=== PATIENT | male | born 1965 | race Caucasian/White ===

== ENCOUNTER → 2019-01-10 | Day surgery (SDC) | payer OTHER ==
[~2019-01-10] VITALS: Ht 185.4 cm; Wt 103.9 kg
[~2019-01-10] MED LIST: B12100 MCG PO; BLEPH-10 15 ML15 ML OPH; CALCIUM200 MG PO; CELEXA20 MG PO; DELTASONE10 MG PO; LEXAPRO10 MG PO; LISINOPRIL20 MG; MEDROL DOSEPAK4 MG PO; MULTIPLE VITAMI1 CAP PO; NORCO 5-325 TA1 EACH PO; PREDNISLONE SOD15 ML; PROTONIX40 M1 PO; ROBAXIN750 MG PO; VICO10300 PO; VICODIN 5/500 505 MG PO; VICODIN ES 7501 TA1 PO; VICODIN ES 7501 TAB PO; VITAMIN E200 UNI1 PO; XANAX0.25 MG PO; ZESTRIL2.5 MG PO
--- NOTE | ~2019-01-10 | PROC NOTE ---
[place], [place] PROCEDURE NOTE NAME: TOBIN MILLER UNIT #: [id number] ROOM: DOCTOR: RAFIQ ALMONTE MD BIRTHDATE: [birth year] DOS: 01/10/2019 PREOPERATIVE DIAGNOSIS: Left index finger cyst. POSTOPERATIVE DIAGNOSIS: Left index finger cyst. PROCEDURE: Excision of left index finger cyst. SURGEON: Rafiq Almonte MD INJECTION MOLDING SUPERVISOR: PATRICIA. ANESTHESIA: MAC with local. INDICATIONS: This is a 53-year-old gentleman with a longstanding history of a cyst on the dorsal aspect of his left index finger, at the level of the proximal interphalangeal joint, who is here for the above-mentioned procedure. The procedure and its complications were explained to the patient in detail. Complications that were discussed included but were not limited to bleeding, infection, hematoma/seroma/abscess formation, prolonged postoperative pain, and damage to lying vital structures. He agreed to proceed. DESCRIPTION OF PROCEDURE: After identifying the patient, the patient was brought to the operating suite and laid in the supine position. After time-out procedure was called, IV sedation was administered by the anesthesia team and the parts were then painted and draped in the usual sterile fashion. A lazy-S incision was marked with the help of a marking pen over the lesion and local anesthesia was infiltrated. Skin incision was made and deepened in layers. The cyst was identified right under the skin and it was excised with the help of blunt dissection all around and sent for histopathological diagnosis. Hemostasis was achieved and the subcutaneous tissue was irrigated and approximated with the help of a single 3-0 Vicryl suture and the skin was approximated with the help of a single 2-0 nylon suture in an interrupted fashion. A dressing was placed. The patient tolerated the procedure well and was brought back to the recovery room in stable fashion. There were no complications. Dr. Rafiq Almonte, the attending surgeon, was present throughout the operating case. [place], [place] PROCEDURE NOTE NAME: TOBIN MILLER UNIT #: [id number] ROOM: DOCTOR: RAFIQ ALMONTE MD BIRTHDATE: [birth year] Rafiq Almonte MD CM:PROCNOTE:PROCEDURE NOTE [id number] RAFIQ ALMONTE MD
[2019-01-10 08:58] VITALS: BP 117/74
[2019-01-10 10:56] VITALS: BP 132/82
[2019-01-10 11:10] VITALS: BP 115/83
[2019-01-10 11:34] VITALS: BP 123/89
== END | disposition home or self-care (01) ==
LOC: SDC 01-07 14:00
DX: R22.32 Localized swelling, mass and lump, left upper limb (principal); L72.0 Epidermal cyst; M25.842 Other specified joint disorders, left hand; K21.9 Gastro-esophageal reflux disease without esophagitis; F32.9 Major depressive disorder, single episode, unspecified; F41.9 Anxiety disorder, unspecified; E78.5 Hyperlipidemia, unspecified; I10 Essential (primary) hypertension; F17.200 Nicotine dependence, unspecified, uncomplicated; Z98.890 Other specified postprocedural states; Z98.1 Arthrodesis status; Z91.040 Latex allergy status

== ENCOUNTER → 2021-06-06 | Outpatient (CLI) | payer OTHER ==
[2021-06-06 11:43] LABS: HEMATOCRIT 46.3 % (42.0-52.0); MEAN CELL VOLUME 89.6 fl (80.0-94.0); MEAN CORPUSCULAR HGB 30.8 pg (27.0-31.0); MEAN CORPUSCULAR HGB CONC 34.3 g/dl (33.0-37.0); MEAN PLATELET VOLUME 9.5 fl (9.6-12.3); RED BLOOD COUNT 5.17 10*6/uL (4.50-5.90); RED CELL DISTRI WIDTH 12.8 % (0-14.5); WHITE BLOOD COUNT 5.8 10*3/uL (4.8-10.8)
[2021-06-06 12:04] LABS: ALKALINE PHOSPHATASE 70 U/L (45-117); BUN 10 mg/dl (7-24); CHLORIDE 109 mmol/L (98-107); CHOLESTEROL 221 mg/dL (<200); CREATININE 1.29 mg/dL (0.70-1.30); LDL CHOLESTEROL 147 mg/dL (9-159); POTASSIUM 4.1 mmol/L (3.5-5.1); SGOT/AST 39 IU/L (3-35); SGPT/ALT 72 U/L (12-78); SODIUM 142 mmol/L (136-145); TOTAL PROTEIN 7.5 gm/dL (6.4-8.2); TRIGLYCERIDES 138 mg/dl (<150)
== END | disposition home or self-care (01) ==
LOC: LAB 11:19
PROVIDERS: ATTEND Family Medicine
DX: K21.9 Gastro-esophageal reflux disease without esophagitis (principal); L20.9 Atopic dermatitis, unspecified; R07.89 Other chest pain

== ENCOUNTER → 2021-06-24 | Outpatient (CLI) | payer OTHER ==
[2021-06-24 15:16] LABS: TOTAL PROTEIN 7.7 gm/dL (6.4-8.2)
== END | disposition home or self-care (01) ==
LOC: LAB 14:12
PROVIDERS: ATTEND Nurse Practitioner Family
DX: L20.9 Atopic dermatitis, unspecified (principal); L71.9 Rosacea, unspecified

== ENCOUNTER → 2022-08-09 | Outpatient (CLI) | payer BC ==
[2022-08-09 17:33] LABS: HEMATOCRIT 47.4 % (42.0-52.0); MEAN CELL VOLUME 89.1 fl (80.0-94.0); MEAN CORPUSCULAR HGB 30.3 pg (27.0-31.0); RED BLOOD COUNT 5.32 10*6/uL (4.50-5.90); RED CELL DISTRI WIDTH 12.3 % (0-14.5)
[2022-08-09 17:59] LABS: ALKALINE PHOSPHATASE 63 U/L (46-116); BUN 10 mg/dl (9-23); CHLORIDE 106 mmol/L (98-107); CHOLESTEROL 197 mg/dL (<200); GAMMA GLUTAMYL TRANSPEPTIDASE 31 U/L (0-73); LDL CHOLESTEROL 134 mg/dL (9-159); POTASSIUM 4.2 mmol/L (3.4-5.1); SGPT/ALT 45 U/L (10-49); TOTAL PROTEIN 7.3 gm/dL (6.0-8.0); TRIGLYCERIDES 117 mg/dl (<150)
== END | disposition home or self-care (01) ==
LOC: LAB 11:56
PROVIDERS: ATTEND Family Medicine
DX: Z00.00 Encounter for general adult medical examination without abnormal findings (principal); Z13.220 Encounter for screening for lipoid disorders; Z12.5 Encounter for screening for malignant neoplasm of prostate; R53.83 Other fatigue; E55.9 Vitamin D deficiency, unspecified; R74.8 Abnormal levels of other serum enzymes

== ENCOUNTER → 2022-08-25 | Outpatient (CLI) | payer BC | END | disposition home or self-care (01) | LOC: US 02:22 | PROVIDERS: ATTEND Family Medicine | DX: K76.0 Fatty (change of) liver, not elsewhere classified (principal) ==

== ENCOUNTER → 2022-09-19 | Outpatient (CLI) | payer BC | END | disposition home or self-care (01) | LOC: NM 01:45 | PROVIDERS: ATTEND Family Medicine | DX: R10.11 Right upper quadrant pain (principal); K21.9 Gastro-esophageal reflux disease without esophagitis ==

== ENCOUNTER → 2022-11-23 | Outpatient (CLI) | payer BC | END | disposition home or self-care (01) | LOC: RAD 17:53 | PROVIDERS: ATTEND Family Medicine | DX: M47.812 Spondylosis without myelopathy or radiculopathy, cervical region (principal); M43.22 Fusion of spine, cervical region; M48.02 Spinal stenosis, cervical region ==

== ENCOUNTER → 2022-12-07 | Outpatient (CLI) | payer BC | END | disposition home or self-care (01) | LOC: MRI 13:44 | PROVIDERS: ATTEND Family Medicine | DX: R51.9 Headache, unspecified (principal); M62.422 Contracture of muscle, left upper arm; R20.2 Paresthesia of skin; R42 Dizziness and giddiness; H81.4 Vertigo of central origin ==

== ENCOUNTER → 2023-06-30 | Outpatient (CLI) | payer OTHER ==
[2023-06-30 10:41] LABS: MEAN CELL VOLUME 92.5 fl (80.0-94.0); MEAN CORPUSCULAR HGB 30.7 pg (27.0-31.0); MEAN CORPUSCULAR HGB CONC 33.2 g/dl (33.0-37.0); MEAN PLATELET VOLUME 10.1 fl (9.6-12.3); RED BLOOD COUNT 5.08 10*6/uL (4.50-5.90); RED CELL DISTRI WIDTH 13.2 % (0-14.5); WHITE BLOOD COUNT 4.7 10*3/uL (4.8-10.8)
[2023-06-30 11:10] LABS: ALKALINE PHOSPHATASE 78 U/L (46-116); BUN 11 mg/dl (9-23); CHLORIDE 107 mmol/L (98-107); CHOLESTEROL 191 mg/dL (<200); CPK 429 U/L (34-171); LDL CHOLESTEROL 134 mg/dL (9-159); POTASSIUM 4.5 mmol/L (3.4-5.1); SGPT/ALT 61 U/L (5-49); TOTAL PROTEIN 7.3 gm/dL (6.0-8.0); TRIGLYCERIDES 90 mg/dl (<150)
[2023-06-30 11:13] LABS: VITAMIN D, 25-HYDROXY 51.1 ng/mL (30-100)
== END | disposition home or self-care (01) ==
LOC: LAB 10:02
PROVIDERS: ATTEND Family Medicine
DX: Z12.5 Encounter for screening for malignant neoplasm of prostate (principal); R06.02 Shortness of breath; E55.9 Vitamin D deficiency, unspecified; M79.10 Myalgia, unspecified site; G62.9 Polyneuropathy, unspecified; E78.00 Pure hypercholesterolemia, unspecified; K21.9 Gastro-esophageal reflux disease without esophagitis; M25.50 Pain in unspecified joint

== ENCOUNTER → 2023-07-25 | Outpatient (CLI) | payer OTHER | END | disposition home or self-care (01) | LOC: LAB 07:10 | PROVIDERS: ATTEND Family Medicine | DX: R74.8 Abnormal levels of other serum enzymes (principal) ==

== ENCOUNTER → 2023-11-17 | Outpatient (CLI) | payer OTHER ==
[2023-11-17 16:23] LABS: HEMATOCRIT 44.7 % (42.0-52.0); MEAN CELL VOLUME 90.1 fl (80.0-94.0); MEAN CORPUSCULAR HGB 31.9 pg (27.0-31.0); MEAN CORPUSCULAR HGB CONC 35.3 g/dl (33.0-37.0); MEAN PLATELET VOLUME 9.8 fl (9.6-12.3); RED BLOOD COUNT 4.96 10*6/uL (4.50-5.90); RED CELL DISTRI WIDTH 12.7 % (0-14.5); WHITE BLOOD COUNT 9.7 10*3/uL (4.8-10.8)
[2023-11-17 16:46] LABS: ALKALINE PHOSPHATASE 61 U/L (46-116); BUN 13 mg/dl (9-23); CHLORIDE 105 mmol/L (98-107); CHOLESTEROL 203 mg/dL (<200); CPK 146 U/L (34-171); LDL CHOLESTEROL 131 mg/dL (9-159); POTASSIUM 3.8 mmol/L (3.4-5.1); SGPT/ALT 31 U/L (5-49); TOTAL PROTEIN 7.1 gm/dL (6.0-8.0); TRIGLYCERIDES 147 mg/dl (<150)
[2023-11-17 17:19] LABS: VITAMIN D, 25-HYDROXY 34.7 ng/mL (30-100)
== END | disposition home or self-care (01) ==
LOC: LAB 16:06
PROVIDERS: ATTEND Family Medicine
DX: E78.00 Pure hypercholesterolemia, unspecified (principal); E55.9 Vitamin D deficiency, unspecified; L20.89 Other atopic dermatitis

== ENCOUNTER → 2024-02-19 | Outpatient (CLI) | payer OTHER ==
[2024-02-19 16:34] LABS: HEMATOCRIT 46.5 % (42.0-52.0); MEAN CELL VOLUME 89.4 fl (80.0-94.0); MEAN CORPUSCULAR HGB 30.8 pg (27.0-31.0); MEAN CORPUSCULAR HGB CONC 34.4 g/dl (33.0-37.0); MEAN PLATELET VOLUME 10.3 fl (9.6-12.3); RED BLOOD COUNT 5.2 10*6/uL (4.50-5.90); RED CELL DISTRI WIDTH 12.3 % (0-14.5); WHITE BLOOD COUNT 7.1 10*3/uL (4.8-10.8)
[2024-02-19 17:01] LABS: ALKALINE PHOSPHATASE 74 U/L (46-116); BUN 10 mg/dl (9-23); CHLORIDE 106 mmol/L (98-107); CHOLESTEROL 203 mg/dL (<200); LDL CHOLESTEROL 121 mg/dL (9-159); POTASSIUM 4.1 mmol/L (3.4-5.1); SGPT/ALT 38 U/L (5-49); TOTAL PROTEIN 7.4 gm/dL (6.0-8.0); TRIGLYCERIDES 212 mg/dl (<150)
[2024-02-19 17:04] LABS: VITAMIN D, 25-HYDROXY 25.4 ng/mL (30-100)
== END | disposition home or self-care (01) ==
LOC: LAB 15:35
PROVIDERS: ATTEND Family Medicine
DX: M47.812 Spondylosis without myelopathy or radiculopathy, cervical region (principal); M51.369 Other intervertebral disc degeneration, lumbar region without mention of lumbar back pain or lower extremity pain; K21.9 Gastro-esophageal reflux disease without esophagitis; E78.00 Pure hypercholesterolemia, unspecified; E55.9 Vitamin D deficiency, unspecified; N28.9 Disorder of kidney and ureter, unspecified; M50.30 Other cervical disc degeneration, unspecified cervical region

== ENCOUNTER → 2024-04-05 | Outpatient (CLI) | payer OTHER | END | disposition home or self-care (01) | LOC: US 07:30 | PROVIDERS: ATTEND Family Medicine | DX: M79.604 Pain in right leg (principal); R68.89 Other general symptoms and signs; R20.2 Paresthesia of skin; F17.200 Nicotine dependence, unspecified, uncomplicated ==

== ENCOUNTER → 2025-02-01 | Outpatient (CLI) | payer OTHER ==
[2025-02-01 08:40] LABS: MEAN CELL VOLUME 91.0 fl (80.0-94.0); MEAN CORPUSCULAR HGB 31.1 pg (27.0-31.0); MEAN PLATELET VOLUME 10.0 fl (9.6-12.3); NUCLEATED RED BLOOD CELL 0.0 % (0.0-0.0); NUCLEATED RED BLOOD CELL 0.0 10*3/uL (0.0-0.0); PLATELET COUNT AUTOMATED 234.0 10*3/uL (130-400); RED CELL DISTRI WIDTH 12.5 % (0-14.5)
[2025-02-01 09:02] LABS: BUN 16 mg/dl (9-23); LDL CHOLESTEROL 103 mg/dL (9-159); SGPT/ALT 30 U/L (5-49)
== END | disposition home or self-care (01) ==
LOC: LAB 08:19
PROVIDERS: ATTEND Family Medicine
DX: M43.22 Fusion of spine, cervical region (principal); Z12.5 Encounter for screening for malignant neoplasm of prostate; E74.9 Disorder of carbohydrate metabolism, unspecified; K21.9 Gastro-esophageal reflux disease without esophagitis